=== PATIENT | male | born 1960 | race Caucasian/White ===

== ENCOUNTER → 2023-10-31 15:35 | Outpatient (REF) | payer BC, SELFPAY | LOC: HWRCS 15:35 | PROVIDERS: ATTENDING PHYSICIAN Internal Medicine Cardiovascular Disease; FAMILY PHYSICIAN Family Medicine | DX: R06.02 Shortness of breath (principal) | CPT/HCPCS: 93306 ==

== ENCOUNTER → 2023-11-12 08:04 | Outpatient (REF) | payer BC, SELFPAY | LOC: RCS 08:04 | PROVIDERS: ATTENDING PHYSICIAN Internal Medicine Cardiovascular Disease; FAMILY PHYSICIAN Family Medicine | DX: R06.02 Shortness of breath (principal) | CPT/HCPCS: 93017; 93350 ==